=== PATIENT | female | born 1965 | race Hispanic/Latino ===

== ENCOUNTER 2017-11-06 01:58 | Inpatient (IN) | payer OTHER ==
[~2017-11-06] VITALS: Ht 154.9 cm; Wt 72.1 kg
[~2017-11-06 01:58] MED LIST: BENTYL 10 MG CA10 MG PO; BENTYL20 MG PO; CARAFATE1 GM/10 ML PO; DILAUDID2 M1 PO; DILAUDID2 MG PO; HYDROMORPHONE HC2 MG PO; MASON NATURAL2000 IU PO; MEDROL4 M2 PO; NEXIUM 40MG40 MG PO; NEXIUM40 M1 PO; NORCO 325 MG-51 TAB PO; ONDANSETRON ODT4 MG PO; PEPCID40 MG PO; PHENERGAN12.5 M1 PO; PRILOSEC40 MG PO; PROAIR HFA8.5 GM INH; PROMETHAZINE HC25 M3 PO; PROTONIX 40MG T40 MG PO; THE MEDICINE SH PO; TOPROL XL 25MG25 MG PO; TRAMADOL50 MG PO; TYLENOL XSTR500 MG PO; VITAMIN D50000 IU PO; VOLTAREN GEL1%; ZITHROMAX250 M2 PO; ZOFRAN 4 MG TABL4 MG PO; ZOFRAN ODT4 M1 SL; ZOFRAN ODT4 MG PO; ZOFRAN4 M1 PO; ZOFRAN4 M1 SL; ZOFRAN4 M2 PO; ZOFRAN4 MG PO
--- NOTE | 2017-11-06 02:06 | ED GI/GU/ABDOMINAL COMPLAINT ---
History of Present Illness General Chief Complaint: Abdominal Pain/Flank Pain Stated Complaint: " MY STOMACH HURTS,+V" Source: patient Exam Limitations: no limitations Vital Signs & Intake/Output Vital Signs & Intake/Output Vital Signs Date Time Temp Pulse Resp B/P B/P Pulse O2 O2 Flow FiO2 Mean Ox Delivery Rate 11/06 0400 100.0 89 18 131/76 96 Room Air 11/06 0213 98.7 75 18 164/74 100 Room Air 11/06 0212 99 Room Air Allergies Coded Allergies: codeine (Mild, HIVES 07/18/15) sumatriptan (HIVES 07/18/15) Reconcile Medications Albuterol Sulfate (Proair Hfa) 90 MCG HFA.AER.AD 2 PUF INH Q4-6 PRN PRN SOB Azithromycin (Zithromax) 250 MG TABLET 1 DP PO AD bronchitis 2 the first day followed by 1 for days 2-5 Esomeprazole (Nexium) 40 MG CAPSULE.DR 1 CAP PO DAILY AC GI Hydromorphone HCl (Dilaudid) 2 MG TABLET 1 TAB PO BIDP PRN PAIN Hydromorphone HCl (Dilaudid) 2 MG TABLET 1 TAB PO Q6HR PRN PAIN Methylprednisolone. (Medrol) 4 MG TAB.DS.PK 1 DP PO AD bronchitis 6 on day 1 then reduce by one tablet daily until gone Ondansetron (Zofran Odt) 4 MG TAB.RAPDIS 1 TAB SL TID PRN NAUSEA Ondansetron HCl (Zofran) 4 MG TABLET 1 TAB PO Q6-8P PRN nausea Promethazine HCl 25 MG TABLET 1 TAB PO Q6P PRN NAUSEA Triage Nurses Notes Reviewed? yes ? n Is pt currently ? No Onset: Gradual Duration: day(s):, waxing and waning Timing: recent history Location: epigastric Radiation: no radiation Activities at Onset: none Modifying Factors: Worsens With: palpation. Associated Symptoms: abdominal pain, diarrhea, nausea/vomiting HPI: 52 yo woman h/o htn presents with 2 days of nausea, vomiting, diarrhea that began several hours after eating at a [employer] restaurant in [place]. She notes, "I drove home... and when I got home I started having really bad diarrhea and started vomiting really badly." She notes also that she had an episode several hours ago of substernal chest pressure that lasted several minutes, "like someone was sitting on my chest," with radiation down left arm. She notes no fever, chills, shortness of breath. She is otherwise well. Past History Travel History Traveled to [place] past 21 day No Medical History Any Pertinent Medical History? 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 No Review of Systems Review of Systems Constitutional: Reports: no symptoms. EENTM: Reports: no symptoms. Respiratory: Reports: no symptoms. Cardiovascular: Reports: no symptoms. GI: Reports: no symptoms. Genitourinary: Reports: no symptoms. Musculoskeletal: Reports: no symptoms. Skin: Reports: no symptoms. Neurological/Psychological: Reports: no symptoms. Hematologic/Endocrine: Reports: no symptoms. Immunologic/Allergic: Reports: no symptoms. All Other Systems: Reviewed and Negative Physical Exam Physical Exam General Appearance: well developed/nourished, mild distress Head: atraumatic, normal appearance Eyes: Bilateral: normal appearance. Ears, Nose, Throat, Mouth: hearing grossly normal, moist mucous membrane Neck: normal inspection, supple, full range of motion Respiratory: normal breath sounds, chest non-tender, no respiratory distress, quiet respiration, lungs clear Cardiovascular: regular rate/rhythm Gastrointestinal: normal bowel sounds, soft, mild mid epigastric tenderness to palpation. no rebound. no guarding. no dickson's sign. Rectal: normal rectal tone, heme negative stool Back: normal inspection Extremities: normal range of motion Neurologic/Psych: no motor/sensory deficits, awake, alert, oriented x 3 Skin: intact, normal color, warm/dry Core Measures ACS in differential dx? No Sepsis Present: No Sepsis Focused Exam Completed? No Progress Differential Diagnosis: food poisoning vs reflux vs viral syndrome vs other. Plan of Care: Orders Procedure Date/time Status Nothing by Mouth 11/06 B Active PARTIAL THROMBOPLASTIN TIME 11/06 1015 Active Saline Lock 08/22 0415 Active Misc Message 11/06 414 Active ED Holding Orders 11/06 414 Active Admit to inpatient 11/06 414 Active Vital Signs 11/06 414 Active Code Status 11/06 414 Active Patient Data 11/06 404 Active Add-on Test (ER Only) 11/06 352 Active EKG 11/06 352 Active PARTIAL THROMBOPLASTIN TIME 11/07 243 Complete PROTHROMBIN TIME 11/07 243 Complete TROPONIN LEVEL 11/06 201 Complete LIPASE 11/06 201 Complete HEPATIC FUNCTION PANEL 11/06 201 Complete CBC WITHOUT DIFFERENTIAL 11/06 201 Complete BASIC METABOLIC PANEL 11/06 201 Complete AMYLASE 11/06 201 Complete EKG 11/06 201 Active Current Medications Sig/Sandra Start time Last Medication Dose Stop Time Status Admin Heparin Sodium 25,000 UNIT Q24H 11/07 399 AC 11/06 (Porcine) 409 (Heparin) Sodium Chloride 500 ML Laboratory Tests 11/06/174: Anion Gap 15, Estimated GFR > 60, BUN/Creatinine Ratio 25.0, Glucose 144 H, Calcium 11.0 H, Total Bilirubin 1.8 H, Direct Bilirubin 0.3, AST 44 H, ALT 32 , Alkaline Phosphatase 71, Troponin I 0.25 *H, Total Protein 9.7 H, Albumin 5.4 H, Amylase 99, Lipase 176, PT 12.4, INR 1.14, APTT 29, CBC w Diff NO MAN DIFF REQ, RBC 4.93, MCV 93.0, MCH 31.9 H, MCHC 34.3, RDW 13.4, MPV 8.4, Gran % 86.9 H, Lymphocytes % 6.8 L, Monocytes % 5.6, Eosinophils % 0.1, Basophils % 0.6, Absolute Granulocytes 11.3 H, Absolute Lymphocytes 0.9 L, Absolute Monocytes 0.7 H, Absolute Eosinophils 0, Absolute Basophils 0.1 Initial ED EKG: sinus, no acute changes, biphasic p in v1, flipped T v1, v2... v2 is new from prior. Departure Departure Disposition: HOME OR SELF CARE Condition: Stable Clinical Impression Primary Impression: Elevated troponin I level Secondary Impressions: Abdominal pain, Nausea and vomiting Referrals: Monica Dueñas APRN Departure Forms: Customer Survey General Discharge Information Admission Note Spoke With: Austin Knott MD Documentation of Exam: Documentation of any treatments & extenuating circumstances including Concerns Regarding Discharge (functional status, medication knowledge or non-compliance, living conditions, etc.) that warrant an admission rather than observation: pt with positive troponin, no chest pain in ED, ekg benign... merits heparin gtt , aspirin, bblocker, cards eval in AM. discussed with dr. oswald (cards) who concurs with plan. Critical Care Note Critical Care Note Critical Care Time: 30-74 min
[2017-11-06 02:51] LABS: ABSOLUTE BASOPHIL COUNT 0.1 /CUMM (0.0-0.2); ABSOLUTE EOSINOPHIL COUNT 0 /CUMM (0.0-0.7); ABSOLUTE GRANULOCYTE CT 11.3 /CUMM (1.4-6.5); ABSOLUTE LYMPH COUNT 0.9 /CUMM (1.2-3.4); ABSOLUTE MONOCYTE COUNT 0.7 /CUMM (0.10-0.60); BASOPHIL % 0.6 % (0.0-2.0); EOSINOPHIL % 0.1 % (0-5); HEMATOCRIT 45.9 % (37-47); MEAN CORPUSCULAR HGB 31.9 PG (27.0-31.0); MEAN CORPUSCULAR HGB CONC 34.3 G/DL (33.0-37.0); MEAN PLATELET VOLUME 8.4 FL (7.4-10.4); PLATELET COUNT 403 /CUMM (130-400); RBC DISTRIBUTION WIDTH 13.4 % (11.5-14.5); RED BLOOD CELL CT 4.93 /CUMM (4.20-5.40)
[2017-11-06 03:04] LABS: GRANULOCYTE % 86.9 % (42.2-75.2)
[2017-11-06 04:07] LABS: PT 12.4 SEC (9.4-12.5); PTT 29 SEC (25-37)
--- NOTE | 2017-11-06 04:17 | History & Physical ---
Mitch Herman 11/06/17 0417: General Information and HPI MD Statement: I have seen and personally examined FRANK JULIEN and documented this H&P. The patient is a 52 year old F who presented with a patient stated chief complaint of ABDOMINAL AND CHEST PAIN, VOMITING, DIARRHEA. Source of Information: patient Exam Limitations: no limitations History of Present Illness: 52-year-old female past medical history significant for migraines, IBS, GERD, former smoker, and hypertension, diarrhea, abdominal pain and chest pain. 2 days ago she is eating in a [employer] in restaurant in [place]. When she returned as 10 out of 10 abdominal pain that was crampy and nonradiating. This was followed by nausea, vomiting, diarrhea. Over the next 24 hours she experienced episodes, prompting her to seek care. She denies any blood in her vomit or diarrhea. After discharge from [facility], her symptoms continued but were mildly improved. Yesterday she developed chest pain lasting 3 hours in the evening prior to admission. This continued after she went to sleep, waking her from sleep. She describes the pain as substernal, intermittent, radiating down her left arm, and like a pressure diaphoresis, lightheadedness, palpitations, dyspnea that all resolved after presentation to the ED. In the ED, her chest pain is completely resolved. Low-grade fever of 100.0 otherwise normal vital signs labs notable for leukocytosis of 13, elevated AST of 44, total bilirubin 1.8, calcium of 11 with albumin of 5.8, and troponin 0 0.25. She was admitted to telemetry for monitoring of troponin. Allergies/Medications Allergies: Coded Allergies: codeine (Mild, HIVES 07/18/15) sumatriptan (HIVES 07/18/15) Home Med list Amlodipine (Norvasc) 2.5 MG TABLET 1 TAB PO DAILY htn (Reported) Esomeprazole (Nexium) 40 MG CAPSULE.DR 1 CAP PO DAILY AC GI Zolpidem Tartrate (Ambien) 5 MG TABLET 1 TAB PO QPMP PRN INSOMNIA (Reported) Compliance With Home Meds: GOOD Past History Travel History Traveled to [place] past 21 day No Medical History Neurological: migraine EENT: NONE Cardiovascular: NONE Respiratory: NONE Gastrointestinal: PUD CHRONIC ABDOMINAL PAIN AND VOMITING STOMACH ULCERS, IBS Hepatic: NONE Renal: NONE Musculoskeletal: osteoarthritis Psychiatric: NONE Endocrine: NONE Blood Disorders: NONE Cancer(s): NONE TAILOR GARMENT FITTER/Reproductive: NONE History of MRSA: No History of VRE: No History of CDIFF: No Surgical History Surgical History: N Past Family/Social History Psychosocial History Where do you live? Home Services at Home: None Smoking Status: Never Smoked ETOH Use: denies use Illicit Drug Use: marijuana Functional Ability ADLs Independent: dressing, eating, toileting, bathing. Ambulation: independent IADLs Independent: shopping, housework, finances, food prep, telephone, transportation , medication admin. Review of Systems Review of Systems Constitutional: Reports: see HPI. EENTM: Reports: no symptoms. Cardiovascular: Reports: chest pain, palpitations. Respiratory: Reports: short of breath. GI: Reports: abdominal pain, diarrhea. Genitourinary: Reports: no symptoms. Musculoskeletal: Reports: no symptoms. Skin: Reports: no symptoms. Neurological/Psychological: Reports: no symptoms. Exam & Diagnostic Data Last 24 Hrs of Vital Signs/I&O Vital Signs Date Time Temp Pulse Resp B/P B/P Pulse O2 O2 Flow FiO2 Mean Ox Delivery Rate 11/06 0431 100.0 67 18 152/90 11/06 0431 67 18 152/90 99 Room Air 11/06 0400 100.0 89 18 131/76 96 Room Air 11/06 0213 98.7 75 18 164/74 100 Room Air 11/06 0212 99 Room Air Intake & Output 11/06 0800 11/06 0000 11/05 1600 Intake Total Output Total Balance Patient 150 lb Weight Weight Reported by Patient Measurement Method Physical Exam General Appearance Alert, Oriented X3, Cooperative, No Acute Distress Skin No Rashes, No Breakdown, No Significant Lesion Skin Temp/Moisture Exam: Warm/Dry HEENT Atraumatic, PERRLA, EOMI, Mucous Membr. moist/pink Neck Supple, No JVD, No thryomegaly Cardiovascular Regular Rate, Normal S1, Normal S2, No Murmurs, Gallops, Rubs Lungs Clear to Auscultation, Normal Air Movement Abdomen Normal Bowel Sounds, Soft, No Masses, RUQ tenderness to deep palpation Extremities No Clubbing, No Cyanosis, No Edema, Normal Pulses Last 24 Hrs of Labs/Steve: Laboratory Tests 11/06/17 0244: Anion Gap 15, Estimated GFR > 60, BUN/Creatinine Ratio 25.0, Glucose 144 H, Calcium 11.0 H, Total Bilirubin 1.8 H, Direct Bilirubin 0.3, AST 44 H, ALT 32 , Alkaline Phosphatase 71, Troponin I 0.25 *H, Total Protein 9.7 H, Albumin 5.4 H, Amylase 99, Lipase 176, PT 12.4, INR 1.14, APTT 29, CBC w Diff NO MAN DIFF REQ, RBC 4.93, MCV 93.0, MCH 31.9 H, MCHC 34.3, RDW 13.4, MPV 8.4, Gran % 86.9 H, Lymphocytes % 6.8 L, Monocytes % 5.6, Eosinophils % 0.1, Basophils % 0.6, Absolute Granulocytes 11.3 H, Absolute Lymphocytes 0.9 L, Absolute Monocytes 0.7 H, Absolute Eosinophils 0, Absolute Basophils 0.1 Microbiology 11/06 0507 STOOL: Clostridium difficile Toxin A & B - ORD 11/06 0507 STOOL: Stool Culture - ORD 11/06 0505 URINE ROUT: Urine Culture - ORD Diagnostic Data EKG Results sinus rhythm, lateral ST segment depressions CXR Results no evidence of acute disease Assessment/Plan Assessment: 52-year-old female past medical history of former smoking, IBS, migraine, hypertension presents with complaints of abdominal pain, nausea, vomiting and diarrhea for 2 days and substernal chest pain radiating down the left on the left. Elevated troponins -Possibly related to NSTEM in setting of acute illness and dehydration -Initial troponin 0.25 -EKG changes Gastroenteritis -Seems to be improved -Leukocytosis to 13, low fever -Check blood cultures, urinalysis and culture, C diff and stool culture -IV NS 1L -NPO -RUQ Ultrasound and abdominal x-ray Migraine -Tylenol GERD -PPI HTN -hold amlodipine -started metoprolol and lisinopril DVT prophylaxis: Heparin GTT and ALPS NPO Patient is full code As Ranked By This Provider Problem List: 1. Elevated troponin I level 2. Nausea and vomiting 3. HTN (hypertension) 4. Abdominal pain 5. Vomiting and diarrhea 6. Leukocytosis Core Measures/Misc (12/02) Acute Coronary Syndrome ACS Diagnosis: Yes Last Known EF % 99 Congestive Heart Failure Congestive Heart Failure Diagnosis No Cerebrovascular Accident CVA/TIA Diagnosis: No VTE (View Protocol) VTE Risk Factors Age>40 No Mechanical VTE Prophylaxis d/t N/A MechProphylax Ordered No VTE Pharm Prophylaxis d/t NA PharmProphylax ordered Sepsis (View protocol) Sepsis Present: No If YES complete Sepsis Event Note If YES complete Sepsis Event Note Lefty Gomez MD 11/06/17 6759: General Information and HPI MD Statement: I have seen and personally examined FRANK JULIEN and documented this H&P. The patient is a 52 year old F who presented with a patient stated chief complaint of nausea, vomiting, diarrhea, abdominal pain, and chest pain. Source of Information: patient, old records Exam Limitations: no limitations History of Present Illness: 52 year old female with past medical history significant for migraines, Whelan' s esophagus, IBS, GERD, former smoking, and HTN presents with nausea, vomiting, diarrhea, abdominal pain, and chest pain. Her symptoms started two days ago after eating corn cakes with cheese at an [employer] restaurant in [place]. Once she returned to [place], she developed severe epigastric abdominal pain, 10/10, crampy, and non radiating. This was followed by nausea, vomiting, and diarrhea. She estimates approximately 25-30 episodes of each over the next 24-36 hours, prompting her to seek care at [facility]. She denies any blood or mucous in her vomit or diarrhea, largely watery and brown. At [place], she had some blood tests, fluids, and imaging down and was discharged home. Her symptoms persisted but mildly improved until she developed chest pain that lasted three hours in the early evening prior to admission. She described the chest pain as substernal, pressure like, waxing and waning in severity, and radiating down her left arm. She described associated, diaphoresis, red flushes skin, lightheadedness, dypsnea, palpitations, and numb toes that all subsided after presentation to the ED, before administration of any medications. She thinks her GI symptoms are different than prior episodes of IBS because of the severity of her pain. She no longer sees her GI doctor and was unable to perform colonoscopy because of three failed attempts at tolerating the bowel prep. She has never seen a group marketing vp. She has no family history of sudden or CAD/OH. She was a former smoker when she was younger and uses MJ for chronic right hip pain. She is physically active uses the exercise bike and had an intentional weight loss of 80lbs over the past 1-2 years. Her physical exertion has never caused any chest discomfort in the past. Her chest pain has completely resolved at the time of evaluation and her only complaints are fatigue and persistent nausea and abdominal pain. In the ED, she had low grade fever of 100.0 otherwise normal vital signs, her labs were notable for leukocytosis of 13,000, elevated AST to 44, total bilirubin of 1.8, calcium of 11 with an albumin of 5.4, and troponin of 0.25. She was treated with tylenol, toradol, zofran, IV PPI, NS x 1L, ASA 325mg, metoprol 5mg IV, started on IV heparin gtt, and admitted to telemetry for NSTEMI. Allergies/Medications Compliance With Home Meds: GOOD Past History Travel History Traveled to [place] past 21 day No Medical History Neurological: migraine EENT: NONE Cardiovascular: hypertension Respiratory: NONE Gastrointestinal: GERD, Whelan's, IBS Hepatic: NONE Renal: NONE Musculoskeletal: osteoarthritis Psychiatric: NONE Endocrine: NONE Blood Disorders: NONE Cancer(s): NONE TAILOR GARMENT FITTER/Reproductive: NONE Surgical History Surgical History: non-contributory Past Family/Social History Family History Relations & Conditions if any great grandmother FH: colon cancer Psychosocial History Where do you live? Home Services at Home: None Smoking Status: Former Smoker ETOH Use: denies use Illicit Drug Use: marijuana Functional Ability ADLs Independent: dressing, eating, toileting, bathing. Ambulation: independent IADLs Independent: shopping, housework, finances, food prep, telephone, transportation , medication admin. Review of Systems Review of Systems Constitutional: Reports: chills, diaphoresis, fever, malaise. EENTM: Reports: no symptoms. Cardiovascular: Reports: chest pain, palpitations. Denies: peripheral edema, syncope. Respiratory: Reports: short of breath. Denies: cough, sputum production, wheezing. GI: Reports: abdominal pain, diarrhea, nausea, vomiting. Denies: melena. Genitourinary: Denies: dysuria, frequency. Musculoskeletal: Reports: no symptoms. Skin: Reports: no symptoms. Neurological/Psychological: Reports: no symptoms. Hematologic/Endocrine: Reports: no symptoms. Immunologic/Allergic: Reports: no symptoms. All Other Systems: Reviewed and Negative Exam & Diagnostic Data Last 24 Hrs of Vital Signs/I&O Vital Signs Date Time Temp Pulse Resp B/P B/P Pulse O2 O2 Flow FiO2 Mean Ox Delivery Rate 11/06 0431 100.0 67 18 152/90 11/06 0431 67 18 152/90 99 Room Air 11/06 0400 100.0 89 18 131/76 96 Room Air 11/06 0213 98.7 75 18 164/74 100 Room Air 11/06 0212 99 Room Air Intake & Output 11/06 0800 11/06 0000 11/05 1600 Intake Total Output Total Balance Patient 68.096 kg Weight Weight Reported by Patient Measurement Method Physical Exam General Appearance Alert, Oriented X3, Cooperative, No Acute Distress Neck Supple, No JVD Cardiovascular Regular Rate, Normal S1, Normal S2, No Murmurs Lungs Clear to Auscultation, Normal Air Movement Abdomen Normal Bowel Sounds, Soft, No Masses, RUQ and epigastric tenderness on palpation, no guarding, no rebound tenderness, no peritoneal signs Extremities No Clubbing, No Cyanosis, No Edema, Normal Pulses Last 24 Hrs of Labs/Steve: Laboratory Tests 11/06/17 0244: Anion Gap 15, Estimated GFR > 60, BUN/Creatinine Ratio 25.0, Glucose 144 H, Calcium 11.0 H, Total Bilirubin 1.8 H, Direct Bilirubin 0.3, AST 44 H, ALT 32 , Alkaline Phosphatase 71, Troponin I 0.25 *H, Total Protein 9.7 H, Albumin 5.4 H, Amylase 99, Lipase 176, PT 12.4, INR 1.14, APTT 29, CBC w Diff NO MAN DIFF REQ, RBC 4.93, MCV 93.0, MCH 31.9 H, MCHC 34.3, RDW 13.4, MPV 8.4, Gran % 86.9 H, Lymphocytes % 6.8 L, Monocytes % 5.6, Eosinophils % 0.1, Basophils % 0.6, Absolute Granulocytes 11.3 H, Absolute Lymphocytes 0.9 L, Absolute Monocytes 0.7 H, Absolute Eosinophils 0, Absolute Basophils 0.1 Microbiology 11/06 506 STOOL: Clostridium difficile Toxin A & B - ORD 11/06 506 STOOL: Stool Culture - ORD 11/06 050 URINE ROUT: Urine Culture - ORD Diagnostic Data EKG Results sinus rhythm, lateral ST segment depressions, septal TWI CXR Results pending Assessment/Plan Assessment: 52 year old female with PMH significant for former smoking, Whelan's esophagus, duodenitis on EGD with negative H. pylori and no malignancy on biopsies 2015, h/ o IBS, migraine, and HTN presents with complaints of abdominal pain, nausea, vomiting, and diarrhea for two days and substernal chest pain radiating down the left arm that lasted three hours yesterday. Elevated troponins: Likely type II NSTEMI in the setting of physiological stress of acute illness/ dehydration Could also be a viral myocarditis after gastroenteritis New lateral ST segment depressions on EKG Initial troponin 0.25 Check serial troponins and EKGs for worsening myocardial ischemia Started on heparin gtt in the ED, given full dose aspirin 325mg Start metoprolol 25mg po bid, atorvastatin 80mg, lisinopril 2.5mg, and aspirin 325mg Check echocardiogram Cardiology consultation Patient states she has a good exercise tolerance and uses an exercise bike Reports never having had any chest pain with exertion in the past Gastroenteritis: Seems to be improved in terms of vomiting and diarrhea, but remains nauseous with epigastric and right upper quadrant abdominal pain Mild leukocytosis to 13,000 without bandemia, and low grade temperature of 100.0 in ED Check blood cultures, urinalysis and culture, C diff and stool culture Normal saline x 1L for fluid losses NPO Right upper quadrant ultrasound and abdominal x-ray Patient was treated at [facility] yesteray for similar complaints, obtain records Migraine: Tylenol prn GERD: Continue PO PPI HTN: Hold norvasc Starting metoprolol and lisinopril NPO DVT ppx-heparin gtt Full code As Ranked By This Provider Problem List: 1. Elevated troponin I level 2. HTN (hypertension) 3. Nausea and vomiting 4. Leukocytosis 5. Abdominal pain 6. Vomiting and diarrhea Core Measures/Misc (12/02) Acute Coronary Syndrome ACS Diagnosis: Yes Last Known EF % 99 (UNKNOWN) Congestive Heart Failure Congestive Heart Failure Diagnosis No Cerebrovascular Accident CVA/TIA Diagnosis: No VTE (View Protocol) VTE Risk Factors Age>40 No Mechanical VTE Prophylaxis d/t N/A MechProphylax Ordered No VTE Pharm Prophylaxis d/t NA PharmProphylax ordered Sepsis (View protocol) Sepsis Present: No If YES complete Sepsis Event Note If YES complete Sepsis Event Note Austin Knott MD 11/06/17 0548: Core Measures/Misc (12/02) Sepsis (View protocol) If YES complete Sepsis Event Note If YES complete Sepsis Event Note Attending MD Review Statement Attending Statement Attending MD Statement: examined this patient, discuss w/resident/PA/CHIEF ORDER DISPATCHER, agreed w/resident/PA/CHIEF ORDER DISPATCHER Attending Assessment/Plan: Patient is seen and examined independently by me. Care plan discussed with medical record specialist and/or resident. I agree with the physical exam findings and plan of care as outlined above with the following changes and additions. 52 yo F with history of HTN, migraine, GERD, irritable bowel syndrome with frequent ED visits, presented with nausea, vomiting, diarrhea for 2 days and chest pain tonight. Her GI symptoms started few hours after she ate at a [employer] restaurant in [place] where she had corn cake with cheese. She had fever, chills, lower abdominal pain then epigastric/RUQ pain (her typical IBS pain is mostly in RUQ area) with 25 times non bloody diarrhea and 25+ times of non bloody vomiting. She was at [facility] yesterday and had lab/XR (told to be negative) and discharged after receiving some Zofran. At about 6 pm tonight, she has lower mid chest pressure with radiates to left arm lasted for 3 hrs. It was associated with SOB, palpitation, diaphoresis, dizziness and lightheadedness. She states she exercises on a bike and has lost about 80 lbs in a year. Because of her weight loss, her amlodipine was decreased from 5 mg to 2.5 mg daily. On exam, heart: regular, S1S2. Lungs: Clear bilaterally. Abdomen: bowel sound present, soft, mild epigastric/RUQ tenderness with no rebound or guarding. In the ED, T max 100. WBC 13.0. AST 44, ALT 32, T bili 1.8, D bili 0.3. AP 71, lipase 176. Troponin 0.25. EKG#1 shows NSR at 63 with PAC, new inverted T in V2 (old inverted T in V1), [address] depression in V4 and V5. EKG#2 shows NSR at 75 with inverted T in V1,V2 and [address] depression in V4-V6. Patient got Tylenol 1 g PO, Toradol 30 mg IV, Zofran 4 mg IV, protonix 40 mg IV, NS 1 L, ASA 325 mg PO, metoprolol 5 mg IV x2 and started on IV heparin drip in the ED. Patient is admitted to [facility] for NSTEMI and irritable bowel syndrome with probably gastroenteritis. Cardiac monitoring. Check serial troponin/EKG. Urine tox screen. ASA, IV heparin, metoprolol, Lisinopril, statin. NPO. IV hydration. Echocardiogram Cardiology consult. Repeat LFT. Check CXR/AXR. Austin Knott MD FACP
[2017-11-06] MEDS ORDERED: AMBIEN5 M1 PO (05:13)
[2017-11-06] MEDS ORDERED: NORVASC2.5 M1 PO (05:13)
--- NOTE | 2017-11-06 05:45 | RADIOLOGY REPORT ---
EXAMINATIONS: CHEST 1 VIEW AND ABDOMEN 1 VIEW CLINICAL INFORMATION: Chest pain. Abdominal pain. COMPARISON: November 08, 2016. TECHNIQUE: An AP view of the chest is provided. An AP view of the abdomen is provided. FINDINGS: The cardiac silhouette is not enlarged. The mediastinal and hilar contours are unremarkable. There are neither pleural effusions nor pneumothoraces. There are no consolidations. The osseous structures are unremarkable. There are no dilated loops of bowel. IMPRESSION: No evidence for acute disease.
[2017-11-06 07:34] VITALS: BP 172/100
--- NOTE | 2017-11-06 10:15 | Cons- Cardiology ---
General Information and HPI Consulting Request Date of Consult: 11/06/17 Requested By: Austin Knott MD Reason for Consult: Elevated troponin Source of Information: patient, old records Exam Limitations: no limitations History of Present Illness: Frank Julien is a 52-year-old female has been generally healthy. The last time she was here was about 2 years ago for an acute GI illness. The patient denies any cardiac problems. She does have hypertension on amlodipine only. She has never had any chest pain, shortness of breath, palpitations prior. The patient states that 2 days ago she had a meal in a [employer] in restaurants in [place]. When she returned to [place] she had onset of severe diarrhea followed by vomiting. She went to [facility] yesterday with the symptoms and they gave her Reglan and sent her home. However at night she developed some chest pressure associated also with some nausea and vomiting and came here. Her troponin was done and recorded as 0.25 and she was placed on heparin and admitted. Her chest pain resolved in a few hours. She has never previously had this kind of discomfort. She was also noted to have a mild leukocytosis mildly elevated AST and bilirubin and calcium of 11. Currently she is feeling okay. Her EKGs have not shown any acute changes. Allergies/Medications Allergies: Coded Allergies: codeine (Mild, HIVES 07/18/15) sumatriptan (HIVES 07/18/15) Home Med List: Amlodipine (Norvasc) 2.5 MG TABLET 1 TAB PO DAILY htn (Reported) Esomeprazole (Nexium) 40 MG CAPSULE.DR 1 CAP PO DAILY AC GI Zolpidem Tartrate (Ambien) 5 MG TABLET 1 TAB PO QPMP PRN INSOMNIA (Reported) Current Medications: Current Medications Sig/Sandra Start time Last Medication Dose Route Stop Time Status Admin Acetaminophen 650 MG ONCE ONE 11/06 899 DC 11/06 PO 11/06 09 0917 Acetaminophen 0 .STK-MED ONE 11/06 0856 DC PO Acetaminophen 0 .STK-MED ONE 11/06 0234 DC IV Acetaminophen 1,000 MG ONCE ONE 11/06 0230 DC 11/06 N/A 1 UNIT IV 11/06 0244 0248 Amlodipine Besylate 2.5 MG DAILY 11/06 899 CAN PO Aspirin 325 MG DAILY 11/07 899 AC PO Aspirin 0 .STK-MED ONE 11/06 0351 DC PO Aspirin 325 MG ONCE ONE 11/06 0345 DC 11/06 PO 11/06 0346 0352 Atorvastatin Calcium 80 MG 1700 11/06 1700 AC PO Heparin Sodium 0 .STK-MED ONE 11/06 0401 DC (Porcine) .ROUTE Heparin Sodium 4,000 UNIT ONCE ONE 11/06 0400 DC 11/06 (Porcine) IV 11/06 0401 0410 Heparin Sodium 25,000 UNIT Q24H 11/06 0400 AC 11/06 (Porcine) IV 0410 Sodium Chloride 500 ML Ibuprofen 600 MG Q6P PRN 11/06 0445 DC PO Ketorolac 0 .STK-MED ONE 11/06 0234 DC Tromethamine .ROUTE Ketorolac 30 MG ONCE ONE 11/06 0230 DC 11/06 Tromethamine IV 11/06 023 0248 Lisinopril 2.5 MG DAILY 11/06 0900 AC 11/06 PO 0926 Metoclopramide HCl 0 .STK-MED ONE 11/06 0908 DC .ROUTE Metoclopramide HCl 10 MG ONCE ONE 11/06 0900 DC 11/06 IV 11/06 0901 0916 Metoprolol Tartrate 25 MG BID 11/06 0900 AC 11/06 PO 0926 Metoprolol Tartrate 12.5 MG BID 11/06 0900 CAN PO Metoprolol Tartrate 0 .STK-MED ONE 11/06 0431 DC IV Metoprolol Tartrate 0 .STK-MED ONE 11/06 0401 DC IV Metoprolol Tartrate 5 MG ONCE ONE 11/06 0400 DC 11/06 IV 11/06 0401 0409 Metoprolol Tartrate 5 MG ONCE ONE 11/06 0400 DC 11/06 IV 11/06 0401 0431 Omeprazole 40 MG DAILY AC 11/06 0700 AC PO Ondansetron HCl 4 MG Q6P PRN 11/06 0445 AC 11/06 IV 0608 Ondansetron HCl 0 .STK-MED ONE 11/06 0234 DC .ROUTE Ondansetron HCl 4 MG ONCE ONE 11/06 0230 DC 11/06 IV 11/06 0231 0248 Pantoprazole Sodium 0 .STK-MED ONE 11/06 0235 DC IV Pantoprazole Sodium 40 MG ONCE ONE 11/06 0230 DC 11/06 IV 11/06 0231 0311 Sodium Chloride 1,000 ML BOLUS ONE 11/06 0515 DC IV 11/06 0714 Sodium Chloride 1,000 ML BOLUS ONE 11/06 0230 DC 11/06 IV 11/06 0329 0248 Review of Systems Review of Systems: Nausea and vomiting and diarrhea Past History Travel History Traveled to [place] past 21 day No Medical History Blood Transfusion Hx: No Neurological: migraine EENT: NONE Cardiovascular: hypertension Respiratory: NONE Gastrointestinal: GERD, irritable bowel syndrome, Whelan's Hepatic: NONE Renal: NONE Musculoskeletal: osteoarthritis Psychiatric: NONE Endocrine: NONE Blood Disorders: NONE Cancer(s): NONE JUNIOR FINANCIAL ANALYST/Reproductive: NONE Surgical History Surgical History: non-contributory Family History Relations & Conditions If Any: great grandmother FH: colon cancer Psychosocial History Where Do You Live? Home Services at Home: None Smoking Status: Former Smoker ETOH Use: denies use Illicit Drug Use: marijuana Functional Ability ADLs Independent: dressing, eating, toileting, bathing. Ambulation: independent IADLs Independent: shopping, housework, finances, food prep, telephone, transportation , medication admin. Exam & Diagnostic Data Vital Signs and I&O Vital Signs Date Time Temp Pulse Resp B/P B/P Pulse O2 O2 Flow FiO2 Mean Ox Delivery Rate 11/06 0953 99.1 11/06 0926 97 178/94 11/06 0926 97 178/94 11/06 0734 98.3 84 18 172/100 98 Room Air 11/06 0431 100.0 67 18 152/90 11/06 0431 67 18 152/90 99 Room Air 11/06 0400 100.0 89 18 131/76 96 Room Air 11/06 0213 98.7 75 18 164/74 100 Room Air 11/06 0212 99 Room Air Intake & Output 11/06 1600 11/06 0800 11/06 0000 11/05 1600 11/05 0800 11/05 0000 Intake Total Output Total Balance Patient 161 lb Weight Weight Bed scale Measurement Method Physical Exam: Well-developed well-nourished mildly obese female no acute distress HEENT exam normal Neck veins not distended Carotids normal without bruits Chest is clear Heart regular rhythm, no murmurs, gallops or rubs Abdomen nontender Extremities good pulses, no edema Labs/Steve Results: Laboratory Tests 11/07 243 Chemistry Sodium (137 - 145 mmol/L) 140 Potassium (3.5 - 5.1 mmol/L) 4.0 Chloride (98 - 107 mmol/L) 103 Carbon Dioxide (22 - 30 mmol/L) 21 L Anion Gap (5 - 16) 15 BUN (7 - 17 mg/dL) 20 H Creatinine (0.5 - 1.0 mg/dL) 0.8 Estimated GFR (>60 ml/min) > 60 BUN/Creatinine Ratio (7 - 25 %) 25.0 Glucose (65 - 99 mg/dL) 144 H Calcium (8.4 - 10.2 mg/dL) 11.0 H Total Bilirubin (0.2 - 1.3 mg/dL) 1.8 H Direct Bilirubin (< 0.4 mg/dL) 0.3 AST (14 - 36 U/L) 44 H ALT (9 - 52 U/L) 32 Alkaline Phosphatase (<127 U/L) 71 Troponin I (< 0.11 ng/ml) 0.25 *H Total Protein (6.3 - 8.2 g/dL) 9.7 H Albumin (3.5 - 5.0 g/dL) 5.4 H Amylase (30 - 110 U/L) 99 Lipase (23 - 300 U/L) 176 Coagulation PT (9.4 - 12.5 SEC) 12.4 INR (0.90 - 1.19) 1.14 APTT (25 - 37 SEC) 29 Hematology CBC w Diff NO MAN DIFF REQ WBC (4.8 - 10.8 /CUMM) 13.0 H RBC (4.20 - 5.40 /CUMM) 4.93 Hgb (12.0 - 16.0 G/DL) 15.7 Hct (37 - 47 %) 45.9 MCV (81.0 - 99.0 FL) 93.0 MCH (27.0 - 31.0 PG) 31.9 H MCHC (33.0 - 37.0 G/DL) 34.3 RDW (11.5 - 14.5 %) 13.4 Plt Count (130 - 400 /CUMM) 403 H MPV (7.4 - 10.4 FL) 8.4 Gran % (42.2 - 75.2 %) 86.9 H Lymphocytes % (20.5 - 51.1 %) 6.8 L Monocytes % (1.7 - 9.3 %) 5.6 Eosinophils % (0 - 5 %) 0.1 Basophils % (0.0 - 2.0 %) 0.6 Absolute Granulocytes (1.4 - 6.5 /CUMM) 11.3 H Absolute Lymphocytes (1.2 - 3.4 /CUMM) 0.9 L Absolute Monocytes (0.10 - 0.60 /CUMM) 0.7 H Absolute Eosinophils (0.0 - 0.7 /CUMM) 0 Absolute Basophils (0.0 - 0.2 /CUMM) 0.1 Diagnostic Data EKG Results Initial EKG shows sinus rhythm with a single PAC, probable left atrial abnormality, incomplete right bundle branch block, high voltage. Repeat EKG was unchanged except for absence of PAC. CXR Results PATIENT: FRANK JULIEN PRESENT AGE: 52 PATIENT ACCOUNT NO: [id number] : 63 LOCATION: [facility] ORDERING PHYSICIAN: Lefty Gomez MD SERVICE DATE: 11/06/17 EXAM TYPE: RAD - XRY-PORTABLE ABDOMEN; XRY-PORTABLE CHEST XRAY EXAMINATIONS: CHEST 1 VIEW AND ABDOMEN 1 VIEW CLINICAL INFORMATION: Chest pain. Abdominal pain. COMPARISON: November 08, 2016. TECHNIQUE: An AP view of the chest is provided. An AP view of the abdomen is provided. FINDINGS: The cardiac silhouette is not enlarged. The mediastinal and hilar contours are unremarkable. There are neither pleural effusions nor pneumothoraces. There are no consolidations. The osseous structures are unremarkable. There are no dilated loops of bowel. IMPRESSION: No evidence for acute disease. DICTATED BY: Fredy Mcnamara MD DATE/TIME DICTATED:11/06/17539 MANUFACTURED BUILDINGS REPAIRER:JOHN DATE/TIME TRANSCRIBED:11/06/17539 CONFIDENTIAL, DO NOT COPY WITHOUT APPROPRIATE AUTHORIZATION. <Electronically signed in Other Vendor System> SIGNED BY: Fredy Mcnamara MD 11/06/1736 Assessment/Plan Assessment/Plan The patient is a 52-year-old female with history of hypertension but no heart disease. She presents with 2 days of nausea vomiting and diarrhea. Last night she developed some chest discomfort, came to the ER and had mildly elevated troponin of 0.25. There are no acute EKG changes. I suspect the troponin elevation is from demand ischemia and not acute coronary syndrome. I recommend trending troponins and EKGs. An echocardiogram will be done today. If her troponin drops then her heparin can be discontinued. I would consider a stress test tomorrow, please make her n.p.o. we will do this as a nuclear stress test. Consult Acknowledgment - Thank you for your consult request.
[2017-11-06 10:52] LABS: ABSOLUTE BASOPHIL COUNT 0 /CUMM (0.0-0.2); ABSOLUTE EOSINOPHIL COUNT 0.1 /CUMM (0.0-0.7); ABSOLUTE LYMPH COUNT 1.3 /CUMM (1.2-3.4); BASOPHIL % 0.3 % (0.0-2.0); EOSINOPHIL % 0.4 % (0-5); HEMATOCRIT 45.2 % (37-47); MEAN CORPUSCULAR VOLUME 93.9 FL (81.0-99.0); MEAN PLATELET VOLUME 9.4 FL (7.4-10.4); PLATELET COUNT 318 /CUMM (130-400); RBC DISTRIBUTION WIDTH 13.2 % (11.5-14.5); RED BLOOD CELL CT 4.81 /CUMM (4.20-5.40); WHITE BLOOD CELL COUNT 14.2 /CUMM (4.8-10.8)
[2017-11-06 11:09] LABS: PTT 37 SEC (25-37)
--- NOTE | 2017-11-06 11:15 | ULTRASOUND REPORT ---
EXAMINATION: US ABDOMEN LIMITED CLINICAL INFORMATION: Cholelithiasis. Right upper quadrant pain.. COMPARISON: CT scan of the abdomen and pelvis 09/21/2015. TECHNIQUE: Real-time imaging of the right upper quadrant abdominal viscera. FINDINGS: PANCREAS: Normal. LIVER: The liver demonstrates normal size, contour and echogenicity. No focal lesion or intrahepatic biliary duct dilatation. GALLBLADDER: The gallbladder is well-distended. There is a 1.0 x 0.6 x 0.7 cm echogenic calculus within the gallbladder lumen. The gallbladder wall is not thickened and there is no pericholecystic fluid. The patient was not tender in the right upper quadrant. COMMON BILE DUCT: Normal in caliber measuring 0.4 cm in diameter. RIGHT KIDNEY: There is no hydronephrosis. No renal calculi or focal parenchymal lesions. The kidney measures 0.4 cm in maximum dimension. FREE FLUID: None. IMPRESSION: 1. There is a gallbladder calculus. 2. There is no ultrasonographic evidence of acute cholecystitis.
--- NOTE | 2017-11-06 11:27 | PN- Att Addend ---
Attending Addendum Attending Brief Note 52F PMH migraines, IBS, GERD, former smoker, and hypertension presenting with intractable nausea, vomiting and diarrhea for 1 day. Recently went on a road trip to [place], but was in fine health until yesterday, when she had abdominal cramping followed by several episodes of watery stool and 10+ episodes of bilious vomiting. Was treated at [facility] and released, was still vomiting so came to [place], where she presented dehydrated, ill, and was found to have elevated troponin on labs. EKG is NSR without acute changes. No cardiac history. WBC 14, labs consistent with dehydration. Today she feels a bit better. Her appetite is slowly returning. She did not have a BM or vomit for the past 6-7 hours. 1. Acute gastroenteritis 2. Type 2 myocardial infarction 3. Severe dehydration Plan - Continue on telemetry - IV hydration - Replete electrolytes as necessary - Trend BEP and LFTs - Trend cardiac enzymes to peak - Echocardiogram - Follow cardiology recommendations - Continue home medications - DVT PPx
[2017-11-06 13:45] VITALS: BP 100/68
[2017-11-06 14:00] VITALS: BP 100/68; BP 111/64
--- NOTE | 2017-11-06 17:03 | NUCLEAR MEDICINE REPORT ---
EXERCISE STRESS AND RESTING SPECT MYOCARDIAL PERFUSION IMAGING STUDY WITH GATED SPECT IMAGES: CLINICAL INDICATION: Coronary artery disease. PROCEDURE: Regional myocardial perfusion was assessed using a 1 day protocol. Stress images were obtained on 11/06/2017 following the intravenous administration of 18.7 mCi Tc 99m Myoview. Stress was performed using the standard Lino protocol, with the patient reaching a peak heart rate of 109% maximal predicted heart rate. Rest images were obtained 11/06/2017 following the intravenous administration of 32.6 mCi Technetium 99m Myoview. Single photon emission tomographic (SPECT) images were obtained. SPECT images were acquired in a 64 x 64 matrix of 64 projections over 180 degrees. These were reconstructed into standard short axis, horizontal and vertical long axis cardiac projections. FINDINGS: The post stress images demonstrate the left ventricular chamber to be normal in size. There is homogeneous distribution of activity in the left ventricular myocardium with no regions of abnormally decreased activity noted. The resting images also demonstrate homogeneous distribution of activity in the left ventricular myocardium, and are not significantly changed from the post stress images. The stress images were obtained using a gated SPECT technique, which permits visualization of wall motion and calculation of the left ventricular ejection fraction. No left ventricular wall motion abnormalities are noted on the stress study. The calculated left ventricular ejection fraction is 61% on the stress study. No previous study is available for comparison. IMPRESSION: Normal exercise stress and resting myocardial perfusion study with normal left ventricular wall motion and ejection fraction.
[2017-11-06 21:09] VITALS: BP 100/62
[2017-11-07 01:38] LABS: PTT 39 SEC (25-37)
[2017-11-07 06:36] VITALS: BP 98/56
--- NOTE | 2017-11-07 07:16 | PN- Housestaff ---
Thee Blandon 11/07/17 0715: Subjective Follow-up For: DIARRHIOEA AND VOMITTING Complaints: no complaints Tele-Events Since Last Visit: NONE Subjective: Patient was examined bedside and was very exhausted. Hence I went in a little later and the patient slept well for a couple of hours and she was doing well this time she said that she was feeling much better and could walk around on her own without any support. Her diarrhea and vomiting had subsided completely she was thirsty and was able to eat. And was ready to go home. DisCharge plan was discussed with the patient and her sister Review of Systems Constitutional: Reports: see HPI. Objective Last 24 Hrs of Vital Signs/I&O none Physical Exam General Appearance: Alert, Oriented X3, Cooperative, No Acute Distress Cardiovascular: Regular Rate, No Murmurs Lungs: Clear to Auscultation, Normal Air Movement Abdomen: Normal Bowel Sounds, Soft, No Tenderness, No Hepatospenomegaly, No Masses Neurological: Normal Speech, Strength at 5/5 X4 Ext, Normal Tone, Sensation Intact Extremities: No Clubbing, No Cyanosis, No Edema, Normal Pulses, No Tenderness/ Swelling Assessment/Plan Assessment: 52-year-old female past medical history of former smoking, IBS, migraine, hypertension presents with complaints of abdominal pain, nausea, vomiting and diarrhea for 2 days and substernal chest pain radiating down the left on the left. Elevated troponin-probably due to demand ischemia due to dehydration following gastroenteritis -Initial troponin 0.25, trended downwards -EKG changes none Gastroenteritis -Seems to be improved -Leukocytosis salt -Check blood cultures, urinalysis and culture, C diff and stool culture still pending -Patient received regular diet and tolerated well -RUQ Ultrasound and abdominal x-ray was negative, stress test was negative HTN -restart amlodipine -Continue metoprolol and lisinopril DVT prophylaxis: Heparin GTT and ALPS NPO Problem List: 1. Gastritis 2. Abdominal pain 3. Vomiting and diarrhea Pain Ratin Pain Location: none Pain Goal: Pain 7 or less Pain Plan: None Tomorrow's Labs & Rationales: None Luci Cummins MD 11/07/17 1053: Attending MD Review Statement Attending Statement Attending MD Statement: examined this patient, discuss w/resident/PA/CUTTING AND PRINTING MACHINE OPERATOR, agreed w/resident/PA/CUTTING AND PRINTING MACHINE OPERATOR, reviewed EMR data (avail) Attending Assessment/Plan: 52F PMH migraines, IBS, GERD, former smoker, and hypertension presenting with intractable nausea, vomiting and diarrhea for 1 day. Recently went on a road trip to [place], but was in fine health until yesterday, when she had abdominal cramping followed by several episodes of watery stool and 10+ episodes of bilious vomiting. Was treated at [facility] and released, was still vomiting so came to [place], where she presented dehydrated, ill, and was found to have elevated troponin on labs. EKG is NSR without acute changes. No cardiac history. WBC 14, labs consistent with dehydration. Feels much better today and back to baseline. Headache and abdominal cramping resolved. No further diarrhea. Ate a full breakfast this morning without discomfort. Nuclear stress test 11/06 was negative. 1. Acute gastroenteritis 2. Type 2 myocardial infarction 3. Severe dehydration Plan - Stable for discharge home - Nuclear stress test 11/06 was normal - Continue home medications
--- NOTE | 2017-11-07 09:18 | PN- Student ---
Subjective Subjective: Pt reports feeling back to normal today. She is thrilled at her negative stress test and is eager to be discharged. She reports no physical complaints and is happy to be back on a normal diet. She denies headaches, chest pain, dyspnea, palpitations, abdomen pain, n/v/d, and dizziness. Objective Objective: VITALS: Temp 98.2 Pulse 60 RR 20 BP 98/56 O2 96 GEN: NAD, AxO x3, cooperative, friendly HEENT: Atraumatic, PERRLA and EOMI NECK: No JVD, no carotid bruits CARDIO: RRR, normal S1/S2, no murmurs appreciated PULM: CTA b/l ABD: soft, nontender, no HSM, +BS EXT: distal pulses 2+ b/l, no edema Results Results: Laboratory Tests 11/07/17 0800: Troponin I Pending 11/07/17 0800: Sodium Pending, Potassium Pending, Chloride Pending, Carbon Dioxide Pending, Anion Gap Pending, BUN Pending, Creatinine Pending, BUN/Creatinine Ratio Pending , CBC w Diff Pending, WBC Pending, RBC Pending, Hgb Pending, Hct Pending, MCV Pending, MCH Pending, MCHC Pending, RDW Pending, Plt Count Pending, MPV Pending 11/06/17 2150: APTT 39 H 11/06/17 1550: Troponin I 0.26 *H 11/06/17 1550: Anion Gap 13, Estimated GFR 52 L, BUN/Creatinine Ratio 20.0, Magnesium 2.1, Total Bilirubin 2.3 H, Direct Bilirubin 0.4, AST 40 H, ALT 29, Alkaline Phosphatase 65, Total Protein 9.0 H, Albumin 5.1 H 11/06/17 1015: Anion Gap 14, Estimated GFR > 60, BUN/Creatinine Ratio 22.9, Calcium 10.4 H, Magnesium 1.9, Total Bilirubin 2.0 H, Direct Bilirubin 0.4, AST 43 H, ALT 32, Alkaline Phosphatase 76, Troponin I 0.27 *H, Total Protein 9.3 H, Albumin 5.1 H, Triglycerides 113, Cholesterol 246 H, LDL Cholesterol, Calc 119, HDL Cholesterol 105 H, Cholesterol/HDL Ratio 2, APTT 37, CBC w Diff MAN DIFF ORDERED, RBC 4.81, MCV 93.9, MCH 32.0 H, MCHC 34.0, RDW 13.2, MPV 9.4, Lymphocytes % 9.3 L, Eosinophils % 0.4, Basophils % 0.3, Segmented Neutrophils 84 H, Band Neutrophils 2, Absolute Lymphocytes 1.3, Lymphocytes 8 L, Monocytes 6, Eosinophils 0, Absolute Eosinophils 0.1, Basophils 0, Absolute Basophils 0, Platelet Estimate ADEQUATE, Normal RBC Morphology VERIFIED 11/06/17 0945: Urine Opiates Screen < 100, Methadone Screen < 40, Barbiturate Screen < 60, Ur Phencyclidine Scrn < 6.00, Amphetamines Screen < 100, U Benzodiazepines Scrn < 85, Urine Cocaine Screen < 50, Urine Cannabis Screen > 80.00 H, Urine Color YEL , Urine Clarity CLEAR, Urine pH 6.0, Ur Specific [place] >= 1.030, Urine Protein 100 H, Urine Ketones 15 H, Urine Nitrite NEG, Urine Bilirubin NEG, Urine Urobilinogen 0.2, Ur Leukocyte Esterase NEG, Ur Microscopic SEDIMENT EXAMINED, Urine RBC 5-10 H, Urine WBC 1-3 H, Ur Epithelial Cells FEW, Urine Bacteria FEW H, Hyaline Casts 1-3 H, Granular Casts RARE H, Urine Hemoglobin MOD H, Urine Glucose NEG 11/06/17 0244: Anion Gap 15, Estimated GFR > 60, BUN/Creatinine Ratio 25.0, Glucose 144 H, Calcium 11.0 H, Total Bilirubin 1.8 H, Direct Bilirubin 0.3, AST 44 H, ALT 32 , Alkaline Phosphatase 71, Troponin I 0.25 *H, Total Protein 9.7 H, Albumin 5.4 H, Amylase 99, Lipase 176, PT 12.4, INR 1.14, APTT 29, CBC w Diff NO MAN DIFF REQ, RBC 4.93, MCV 93.0, MCH 31.9 H, MCHC 34.3, RDW 13.4, MPV 8.4, Gran % 86.9 H, Lymphocytes % 6.8 L, Monocytes % 5.6, Eosinophils % 0.1, Basophils % 0.6, Absolute Granulocytes 11.3 H, Absolute Lymphocytes 0.9 L, Absolute Monocytes 0.7 H, Absolute Eosinophils 0, Absolute Basophils 0.1 Microbiology 11/06 1015 BLOOD: Blood Culture - RECD 11/06 1010 BLOOD: Blood Culture - RECD 11/06 0945 URINE ROUT: Urine Culture - RECD 11/06 506 STOOL: Clostridium difficile Toxin A & B - COLB 11/06 506 STOOL: Stool Culture - COLB Assessment/Plan Assessment: Ms. Delaney is a 52 yr F w/ hx of migraines, IBS, GERD, former smoker, and HTN that presented one day ago w/ persistent nausea, vomiting, and diarrhea for 1 day after a road trip to [place] and eating at an [employer] restaurant. Prior to one day ago she was in good health. The n/v/d was described as abdominal pain/ cramping followed by frequent watery stools and 10+ bouts of vomiting. She went to [facility] but her sxs did not resolve so she came to [place] where hypovolemia and elevated trops were discovered. EKG showed slight ST depression in leads II, V5, and V6. WBC was elevated around 14. Today she feels essentially back to normal. Slight OFELIA with Cr at 1.1 most likely due to decreased renal perfusion. 3rd serial trop was trending down. Cannabis screen was positive. Most recent EKG showed PVCs. Her problems are as follows: 1. Acute gastroenteritis 2. Demand ischemia 3. Hypovolemai and resultant OFELIA Plan: - Cont telemetry - IV hydration - BEP to follow Cr - Urinalysis to monitor microalbuminuria, casts, etc - Technical Intern against marijuana use - Hold ACEI today due to OFELIA - Cont beta aissatou - DVT prophylaxis
[2017-11-07 10:05] LABS: ABSOLUTE BASOPHIL COUNT 0 /CUMM (0.0-0.2); ABSOLUTE EOSINOPHIL COUNT 0.1 /CUMM (0.0-0.7); ABSOLUTE LYMPH COUNT 3.4 /CUMM (1.2-3.4); ABSOLUTE MONOCYTE COUNT 0.7 /CUMM (0.10-0.60); MEAN CORPUSCULAR VOLUME 95.2 FL (81.0-99.0); WHITE BLOOD CELL COUNT 9.3 /CUMM (4.8-10.8)
--- NOTE | 2017-11-07 10:13 | PN- Cardiology ---
Subjective Subjective: The patient is feeling well. She is able to eat without symptoms. She did have a stress test yesterday which was negative for ischemia by nuclear imaging. There have been no arrhythmias. Her peak troponin was 0.27 and this morning is 0.08. Objective Vital Signs and I&Os Vital Signs Date Time Temp Pulse Resp B/P B/P Pulse O2 O2 Flow FiO2 Mean Ox Delivery Rate 11/07 0636 98.2 60 20 98/56 96 11/06 2109 98.5 66 20 100/62 96 Room Air 11/06 2023 78 100/62 11/06 1400 98.9 79 20 111/64 97 Room Air 11/06 1345 100/68 Intake & Output 11/07 1600 11/07 0811/07 0000 11/06 1600 11/06 0800 11/06 0000 Intake Total 285 93.5 Output Total 150 600 300 Balance -150 -315 -206.5 Intake, IV 135 93.5 Intake, Oral 150 Number 0 Bowel Movements Output, Urine 150 600 300 Patient 159 lb 161 lb Weight Weight Bed scale Measurement Method Physical Exam: No distress Chest clear Heart regular rhythm, no murmurs Current Medications: Current Medications Sig/Sandra Start time Last Medication Dose Route Stop Time Status Admin Aspirin 325 MG DAILY 11/07 0900 AC PO Atorvastatin Calcium 80 MG 1700 11/06 1700 AC 11/06 PO 1606 Dextrose/Sodium 1,000 ML Q13H 11/07 0745 AC 11/07 Chloride IV 0754 Heparin Sodium 4,327 UNIT ONCE ONE 11/07 0230 DC 11/07 (Porcine) IV 11/07 0231 0200 Heparin Sodium 0 .STK-MED ONE 11/07 0155 DC (Porcine) .ROUTE Heparin Sodium 25,000 UNIT Q24H 11/06 0400 DC 11/06 (Porcine) IV 0410 Sodium Chloride 500 ML Lisinopril 2.5 MG DAILY 11/06 0900 AC 11/06 PO 09 Metoprolol Tartrate 25 MG BID 11/06 09 AC 11/06 PO 202 Omeprazole 40 MG DAILY AC 11/06 0700 AC PO Ondansetron HCl 4 MG Q6P PRN 11/06 0445 AC 11/06 IV 0608 Sodium Chloride 1,000 ML Q20H 11/06 1600 DC 11/06 IV 1601 Results Last 48 Hrs of Labs/Mics: Laboratory Tests 11/07/17 0800: Troponin I Cancelled 11/07/17 0800: Anion Gap 8, Estimated GFR 58 L, BUN/Creatinine Ratio 30.0 H, Troponin I 0.08, CBC w Diff Pending, WBC Pending, RBC Pending, Hgb Pending, Hct Pending, MCV Pending, MCH Pending, MCHC Pending, RDW Pending, Plt Count Pending, MPV Pending 11/06/17 2150: APTT 39 H 11/06/17 1550: Troponin I 0.26 *H 11/06/17 1550: Anion Gap 13, Estimated GFR 52 L, BUN/Creatinine Ratio 20.0, Magnesium 2.1, Total Bilirubin 2.3 H, Direct Bilirubin 0.4, AST 40 H, ALT 29, Alkaline Phosphatase 65, Total Protein 9.0 H, Albumin 5.1 H 11/06/17 1015: Anion Gap 14, Estimated GFR > 60, BUN/Creatinine Ratio 22.9, Calcium 10.4 H, Magnesium 1.9, Total Bilirubin 2.0 H, Direct Bilirubin 0.4, AST 43 H, ALT 32, Alkaline Phosphatase 76, Troponin I 0.27 *H, Total Protein 9.3 H, Albumin 5.1 H, Triglycerides 113, Cholesterol 246 H, LDL Cholesterol, Calc 119, HDL Cholesterol 105 H, Cholesterol/HDL Ratio 2, APTT 37, CBC w Diff MAN DIFF ORDERED, RBC 4.81, MCV 93.9, MCH 32.0 H, MCHC 34.0, RDW 13.2, MPV 9.4, Lymphocytes % 9.3 L, Eosinophils % 0.4, Basophils % 0.3, Segmented Neutrophils 84 H, Band Neutrophils 2, Absolute Lymphocytes 1.3, Lymphocytes 8 L, Monocytes 6, Eosinophils 0, Absolute Eosinophils 0.1, Basophils 0, Absolute Basophils 0, Platelet Estimate ADEQUATE, Normal RBC Morphology VERIFIED 11/06/17 0945: Urine Opiates Screen < 100, Methadone Screen < 40, Barbiturate Screen < 60, Ur Phencyclidine Scrn < 6.00, Amphetamines Screen < 100, U Benzodiazepines Scrn < 85, Urine Cocaine Screen < 50, Urine Cannabis Screen > 80.00 H, Urine Color YEL , Urine Clarity CLEAR, Urine pH 6.0, Ur Specific [place] >= 1.030, Urine Protein 100 H, Urine Ketones 15 H, Urine Nitrite NEG, Urine Bilirubin NEG, Urine Urobilinogen 0.2, Ur Leukocyte Esterase NEG, Ur Microscopic SEDIMENT EXAMINED, Urine RBC 5-10 H, Urine WBC 1-3 H, Ur Epithelial Cells FEW, Urine Bacteria FEW H, Hyaline Casts 1-3 H, Granular Casts RARE H, Urine Hemoglobin MOD H, Urine Glucose NEG 11/06/17 0244: Anion Gap 15, Estimated GFR > 60, BUN/Creatinine Ratio 25.0, Glucose 144 H, Calcium 11.0 H, Total Bilirubin 1.8 H, Direct Bilirubin 0.3, AST 44 H, ALT 32 , Alkaline Phosphatase 71, Troponin I 0.25 *H, Total Protein 9.7 H, Albumin 5.4 H, Amylase 99, Lipase 176, PT 12.4, INR 1.14, APTT 29, CBC w Diff NO MAN DIFF REQ, RBC 4.93, MCV 93.0, MCH 31.9 H, MCHC 34.3, RDW 13.4, MPV 8.4, Gran % 86.9 H, Lymphocytes % 6.8 L, Monocytes % 5.6, Eosinophils % 0.1, Basophils % 0.6, Absolute Granulocytes 11.3 H, Absolute Lymphocytes 0.9 L, Absolute Monocytes 0.7 H, Absolute Eosinophils 0, Absolute Basophils 0.1 Recent Imaging Studies: PATIENT: FRANK JULIEN PRESENT AGE: 52 PATIENT ACCOUNT NO: [id number] : 63 LOCATION: [facility] ORDERING PHYSICIAN: Micheal Sierra MD SERVICE DATE: 11/06/17 EXAM TYPE: NUC - MYOCARDIAL PERFUSION IMAGING EXERCISE STRESS AND RESTING SPECT MYOCARDIAL PERFUSION IMAGING STUDY WITH GATED SPECT IMAGES: CLINICAL INDICATION: Coronary artery disease. PROCEDURE: Regional myocardial perfusion was assessed using a 1 day protocol. Stress images were obtained on 11/06/2017 following the intravenous administration of 18.7 mCi Tc 99m Myoview. Stress was performed using the standard Lino protocol, with the patient reaching a peak heart rate of 109% maximal predicted heart rate. Rest images were obtained 11/06/2017 following the intravenous administration of 32.6 mCi Technetium 99m Myoview. Single photon emission tomographic (SPECT) images were obtained. SPECT images were acquired in a 64 x 64 matrix of 64 projections over 180 degrees. These were reconstructed into standard short axis, horizontal and vertical long axis cardiac projections. FINDINGS: The post stress images demonstrate the left ventricular chamber to be normal in size. There is homogeneous distribution of activity in the left ventricular myocardium with no regions of abnormally decreased activity noted. The resting images also demonstrate homogeneous distribution of activity in the left ventricular myocardium, and are not significantly changed from the post stress images. The stress images were obtained using a gated SPECT technique, which permits visualization of wall motion and calculation of the left ventricular ejection fraction. No left ventricular wall motion abnormalities are noted on the stress study. The calculated left ventricular ejection fraction is 61% on the stress study. No previous study is available for comparison. IMPRESSION: Normal exercise stress and resting myocardial perfusion study with normal left ventricular wall motion and ejection fraction. DICTATED BY: Binh Durbin MD DATE/TIME DICTATED:11/06/171652 CUSTOMER EXPERIENCE CONSULTANT:JOHN DATE/TIME TRANSCRIBED:11/06/171652 CONFIDENTIAL, DO NOT COPY WITHOUT APPROPRIATE AUTHORIZATION. <Electronically signed in Other Vendor System> SIGNED BY: Binh Durbin MD [id number] Assessment/Plan Assessment/Plan The patient had a troponin rise probably secondary to hypotension related to severe nausea and vomiting and diarrhea. This would be considered demand ischemia. There is no evidence of underlying ischemic heart disease. The patient can be discharged from a cardiac standpoint. She does not need cardiac follow-up at this time and I told her that. Continue telemetry? No
[2017-11-07 10:34] VITALS: BP 110/60
--- NOTE | 2017-11-07 10:43 | Patient Discharge Instructions ---
See Addendum Discharge Instructions General Discharge Information You were seen/treated for: Seen for diarrhea probably secondary to viral infection leading to demand ischemia Watch for these problems: chest pain/ palpitations/ dizziness/ weakness, decreased urine output Special Instructions: Please follow-up with your PCP within a week of discharge Diet Recommended Diet: Regular Acute Coronary Syndrome Inclusion Criteria At DC or during hospital stay patient has or had the following: ACS DIAGNOSIS No Discharge Core Measures Meds if any: Prescribed or Continued at Discharge Meds if any: NOT Prescribed or Continued at Discharge Congestive Heart Failure Inclusion Criteria At DC or during hospital stay patient has or had the following: CHF DIAGNOSIS No Discharge Core Measures Meds if any: Prescribed or Continued at Discharge Meds if any: NOT Prescribed or Continued at Discharge Cerebrovascular accident Inclusion Criteria At DC or during hospital stay patient has or had the following: CVA/TIA Diagnosis No Discharge Core Measures Meds if any: Prescribed or Continued at Discharge Meds if any: NOT Prescribed or Continued at Discharge Venous thromboembolism Inclusion Criteria VTE Diagnosis No VTE Type NONE VTE Confirmed by (Test) NONE Discharge Core Measures - Per Current guidelines, there needs to be overlap - treatment for the first 5 days of Warfarin therapy. - If discharged on Warfarin prior to 5 days of - overlap therapy, the patient will need to be - assessed for post discharge needs including - *Post discharge parental anticoagulation - *Warfarin and/or parental anticoagulation education - *Follow up date to check INR post discharge At least 5 days overlap therapy as Inpatient No Meds if any: Prescribed or Continued at Discharge Note: Overlap Therapy is Warfarin and Anticoagulant Meds if any: NOT Prescribed or Continued at Discharge
[2017-11-07 10:44] LABS: ABSOLUTE GRANULOCYTE CT 5.1 /CUMM (1.4-6.5); BASOPHIL % 0.4 % (0.0-2.0); GRANULOCYTE % 55.2 % (42.2-75.2); MEAN CORPUSCULAR HGB 32.1 PG (27.0-31.0); MEAN CORPUSCULAR HGB CONC 33.7 G/DL (33.0-37.0); MEAN PLATELET VOLUME 9.4 FL (7.4-10.4); PLATELET COUNT 335 /CUMM (130-400); RBC DISTRIBUTION WIDTH 13.5 % (11.5-14.5); RED BLOOD CELL CT 4.12 /CUMM (4.20-5.40)
[2017-11-07 10:50] LABS: HEMATOCRIT 39.2 % (37-47)
[2017-11-07] MEDS ORDERED: METOPROLOL TART25 M1 PO ×2 (10:54→10:55)
[2017-11-07] MEDS ORDERED: LISINOPRIL2.5 M1 PO (10:55)
--- NOTE | 2017-11-07 17:47 | ECHOCARDIOGRAM REPORT ---
FRANK JULIEN Age: 52 : 1965 Gender: F Exam Date: 11/07/2017 09:35 Exam Location: [address] Ht (in): 61 Wt (lb): 150 BSA: 1.73 BP: 172 / 100 Ordering Physician: Lefty Gomez MD Referring Physician: Lefty Gomez MD Technologist: Freddie Payan [facility] Room Number: 185-1 Indications: Myocardial Ischemia Rhythm: Sinus Technical Quality: Good FINDINGS Left Ventricle Normal size left ventricle. Mild concentric left ventricular hypertrophy. Normal left ventricular ejection fraction visually estimated at >65%. No obvious regional wall motion abnormalities. Normal left ventricular diastolic filling pattern for age. Right Ventricle The right ventricle is normal in size and function. Right Atrium The right atrium is normal in size. Left Atrium The left atrium is normal in size. The interatrial septum is intact. Mitral Valve The mitral valve is normal in structure and function. There is no mitral regurgitation. Aortic Valve Focal thickening of the aortic valve cusps. Very mild aortic stenosis. No aortic regurgitation. Tricuspid Valve The tricuspid valve is normal in structure and function. There is no tricuspid regurgitation. Unable to estimate the right ventricular systolic pressure. Pulmonic Valve Structurally normal pulmonic valve. There is pulmonic regurgitation. Pericardium Normal pericardium without effusion. No pleural effusion. Great Vessels Normal aortic root dimension. The aortic arch and great vessels are well seen and are normal. CONCLUSIONS Mild concentric left ventricular hypertrophy. Normal left ventricular ejection fraction visually estimated at > 65%. Normal left ventricular diastolic filling pattern for age. The left atrium is normal in size. The mitral valve is normal in structure and function. Focal thickening of the aortic valve cusps. Very mild aortic stenosis. No aortic regurgitation. Unable to estimate the right ventricular systolic pressure. Chuck Simpson M.D. (Electronically Signed) Final Date: 07 November 2017 17:47 MEASUREMENTS (Male / Female) Normal Values 2D ECHO LV Diastolic Diameter PLAX 4.2 cm 4.2 - 5.9 / 3.9 - 5.3 cm LV Systolic Diameter PLAX 2.5 cm 2.1 - 4.0 cm LV Fractional Shortening PLAX 40.5 % 25 - 46 % LV Ejection Fraction 2D Teich 71.6 % IVS Diastolic Thickness 1.3 cm LVPW Diastolic Thickness 1.2 cm LV Relative Wall Thickness 0.6 RV Internal Dim ED PLAX 3.7 cm 1.9 - 3.8 cm LVOT Diameter 1.7 cm Aortic Root Diameter 2.7 cm LA Systolic Diameter LX 3.4 cm 3.0 - 4.0 / 2.7 - 3.8 cm LA Volume 42.0 cm 18 - 58 / 22 - 52 cm Ascending Aorta Diameter 3.1 cm DOPPLER AV Peak Velocity 232.0 cm/s AV Peak Gradient 21.5 mmHg AV Mean Velocity 139.0 cm/s AV Mean Gradient 10.0 mmHg AV Velocity Time Integral 47.8 cm LVOT Peak Velocity 118.0 cm/s LVOT Peak Gradient 5.6 mmHg LVOT Mean Velocity 76.0 cm/s LVOT Mean Gradient 3.0 mmHg LVOT Velocity Time Integral 27.1 cm LVOT Stroke Volume 61.5 cm AV Area Cont Eq vti 1.3 cm AV Area Cont Eq pk 1.2 cm MV Peak Velocity 97.9 cm/s MV Peak Gradient 3.8 mmHg MV Mean Velocity 56.5 cm/s MV Mean Gradient 2.0 mmHg Mitral E Point Velocity 92.3 cm/s Mitral A Point Velocity 68.1 cm/s Mitral E to A Ratio 1.4 MV PHT Velocity 102.0 cm/s MV Deceleration Bailey 229.0 cm/s MV Pressure Half Time 133.6 ms MV Area PHT 1.6 cm MV Deceleration Time 268.0 ms PV Peak Velocity 77.2 cm/s PV Peak Gradient 2.4 mmHg PV Mean Velocity 58.9 cm/s PV Mean Gradient 2.0 mmHg PV Velocity Time Integral 20.4 cm LV E' Lateral Velocity 9.9 cm/s Mitral E to LV E' Lateral Ratio 9.3 LV E' Septal Velocity 7.3 cm/s Mitral E to LV E' Septal Ratio 12.6
--- NOTE | 2017-11-07 22:45 | Discharge Summary ---
Hospital Course Allergies: Coded Allergies: codeine (Mild, HIVES 07/18/15) sumatriptan (HIVES 07/18/15) Discharge Instructions Medications at Discharge Discharge Medications: Continue taking these medications: Esomeprazole (Nexium) 40 MG CAPSULE.DR 1 Capsule ORAL DAILY BEFORE BREAKFAST Qty = 30 Amlodipine (Norvasc) 2.5 MG TABLET 1 Tablet ORAL DAILY Qty = 30 Zolpidem Tartrate (Ambien) 5 MG TABLET 1 Tablet ORAL Every night as needed as needed for INSOMNIA Qty = 30 Start taking the following new medications: Metoprolol Tartrate (Metoprolol Tartrate) 25 MG TABLET 25 Milligram ORAL TWICE DAILY Qty = 60 No Refills Comments: Last Taken: 11/07/17 Time: 10:34 AM Lisinopril (Lisinopril) 2.5 MG TABLET 2.5 Milligram ORAL DAILY Qty = 60 No Refills Comments: Last Taken: 11/07/17 Time: 10:34 AM
== END 2017-11-07 14:15 | DRG 249 ==
LOC: ERH 01:58 → 1NO 04:15 → ERHI 04:15 → ENRESERV 05:22 → 1NO 05:42 → ENPENDDIS 11-07 11:07 → ENTRNSPT 11-07 13:50 → EDTRNSPT 11-07 13:57 → EDTRNSPTSTS 11-07 13:57 → 1NO 11-07 14:15 → CMPTRNSPT 11-07 14:15
PROVIDERS: Internal Medicine; Internal Medicine Adolescent Medicine; Pediatrics; Preventive Medicine Public Health & General Preventive Medicine
PROC: 4A12XM4 Monitoring of Cardiac Stress, External Approach (ICD-10-PCS; principal; 2017-11-06)
PROC: 3E033HZ Introduction of Radioactive Substance into Peripheral Vein, Percutaneous Approach (ICD-10-PCS; 2017-11-06)
DX: E86.0 Dehydration (principal); I21.A1 Myocardial infarction type 2; K52.9 Noninfective gastroenteritis and colitis, unspecified; E66.9 Obesity, unspecified; Z68.30 Body mass index [BMI] 30.0-30.9, adult; K21.9 Gastro-esophageal reflux disease without esophagitis; Z87.891 Personal history of nicotine dependence; Z88.5 Allergy status to narcotic agent; Z88.8 Allergy status to other drugs, medicaments and biological substances; F12.90 Cannabis use, unspecified, uncomplicated; G43.909 Migraine, unspecified, not intractable, without status migrainosus
CPT/HCPCS: 1NSP; 84133; 84300; 36592; 71045; 74018; 78452; 80307; 81001; 82436; 87015; 87040; 87045; 87086; 87899; 87899-59; 93005; 93010; 93016; 93017; 93306; 96374; 96375; 99291; A9502; J0131; J1644; J1885; J2405; J2765; J7042